=== PATIENT | male | born 1995 | race Caucasian/White ===

== ENCOUNTER 2016-09-11 00:05 | Emergency (ER) | payer SELFPAY | END 2016-09-11 02:40 | disposition left against medical advice (07) | LOC: ER1 00:05 | DX: Z53.21 Procedure and treatment not carried out due to patient leaving prior to being seen by health care provider (principal) ==

== ENCOUNTER 2017-01-28 12:47 | Emergency (ER) | payer OTHER | END 2017-01-28 14:08 | disposition home or self-care (01) | LOC: ER1 12:47 | DX: T78.40XA Allergy, unspecified, initial encounter (principal); X58.XXXA Exposure to other specified factors, initial encounter | CPT/HCPCS: 96372; 99283; J1100 ==

== ENCOUNTER 2017-01-29 11:46 | Emergency (ER) | payer OTHER | END 2017-01-29 13:07 | disposition home or self-care (01) | LOC: ER1 11:46 | DX: T78.40XA Allergy, unspecified, initial encounter (principal); R05 Cough | CPT/HCPCS: 99283; Q0163 ==